=== PATIENT | male | born 1980 | race Caucasian/White ===

== ENCOUNTER 2016-09-13 15:05 | Outpatient (CLI) | payer BC | END 2016-09-13 15:06 | disposition home or self-care (01) | DX: G47.33 Obstructive sleep apnea (adult) (pediatric) (principal) ==

== ENCOUNTER 2017-09-26 08:03 | Outpatient (CLI) | payer BC | END 2017-09-26 08:04 | disposition EMS.NT | LOC: EMS 08:03 | PROVIDERS: ATTEND Surgery | DX: R07.9 Chest pain, unspecified (principal) ==

== ENCOUNTER 2019-06-02 20:19 | Outpatient (CLI) | payer BC | END 2019-06-02 20:20 | disposition EMS.NT | LOC: EMS 20:19 | PROVIDERS: ATTEND Surgery | DX: R07.9 Chest pain, unspecified (principal); R10.10 Upper abdominal pain, unspecified ==

== ENCOUNTER 2019-06-22 22:43 | Outpatient (CLI) | payer SELFPAY | END 2019-06-22 22:44 | disposition critical access hospital (66) | LOC: EMS 22:43 | PROVIDERS: ATTEND Surgery | DX: M54.5 Low back pain (principal); R26.2 Difficulty in walking, not elsewhere classified | CPT/HCPCS: A0425; A0429 ==

== ENCOUNTER 2019-06-23 | Emergency (ER) | payer SELFPAY ==
--- NOTE | 2019-06-22 23:51 | ED Physician Documentation ---
PD HPI BACK PAIN - Stated complaint Stated Complaint: BACK PAIN - History obtained from History obtained from: Patient - History of Present Illness Timing - onset: Enter time (10:00), Today Timing - duration: Hours Timing - details: Abrupt onset Pain level now: 8 Location: Lower, Right Quality: Pain, Spasm Associated symptoms: No: Fever, Weakness, Numbness, Incontinent of urine, Unable to urinate, Incontinent of stool Improves with: Rest Worsened by: Movement Recently seen: Not recently seen - Additional information Additional information: sudden onset lower right and midline back pain 10 AM this morning; he was bent forward over his sink spitting after brushing his teeth. Upon straightening back up, he had this sudden pain which has steadily worsened during the day and is now severe. distinctly worse with movement. does not radiate. he took vicodin and flexeril ('s prescription) without relief Review of Systems Constitutional: denies: Fever : denies: Dysuria, Frequency, Incontinent, Hematuria Musculoskeletal: reports: Back pain Neurologic: denies: Focal weakness, Numbness PD PAST MEDICAL HISTORY - Past Medical History Past Medical History: No - Past Surgical History Past Surgical History: No - Present Medications Home Medications: Ambulatory Orders Medication Instructions Recorded Confirmed Albuterol Sulfate [Albuterol 8.5 gm IH QID PRN 06/23/19 06/23/19 Sulfate Hfa] Fluticasone/Salmeterol [Advair 1 each IH BID 06/23/19 06/23/19 250-50 Diskus] Oxycodone HCl/Acetaminophen 1 - 2 each PO Q6H PRN #14 tablet 06/23/19 [Percocet 5-325 mg Tablet] diazePAM [Valium] 5 mg PO TID PRN #15 tablet 06/23/19 - Allergies Allergies/Adverse Reactions: Allergies Allergy/AdvReac Type Severity Reaction Status Date / Time No Known Drug Allergies Allergy Verified 06/23/19 00:04 PD ED PE NORMAL - Vitals Vital signs reviewed: Yes - General General: Alert and oriented X 3, Well developed/nourished, Other (appears to be uncomfortable due to pain which is worse with movement) - Cardiac Cardiac: RRR, No murmur - Respiratory Respiratory: No respiratory distress, Clear bilaterally - Back Back: No CVA TTP, No spinal TTP, Other (able to roll on to side but can't sit up due to exacerbation of pain when he tries to do so) - Derm Derm: Normal color, Warm and dry, No rash - Neuro Neuro: Alert and oriented X 3, 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 We discussed PO valium to be added if these medications were not effective, but he feels adequate relief and can sit up and move around without severe pain, is comfortable with d/c home. Departure - Departure Disposition: 01 Home, Self Care Clinical Impression: Back pain Condition: Good Instructions: NARCOTIC, Oral, ED Neck Back Pain General Follow-Up: Odalis Dasilva DO [Primary Care Provider] - (Call to arrange for next available appointment) Prescriptions: diazePAM [Valium] 5 mg PO TID PRN #15 tablet PRN Reason: Spasms Oxycodone HCl/Acetaminophen [Percocet 5-325 mg Tablet] 1 - 2 each PO Q6H PRN #14 tablet PRN Reason: pain Discharge Date/Time: 06/23/19 01:51
[2019-06-23] MEDS ORDERED: HYDROmorphone 1 MG/ML CARPUJECT IM STA (00:30)
[2019-06-23] MEDS ORDERED: KETOROLAC 60 MG/2 ML VIAL IM STA (00:30)
[2019-06-23] MEDS ORDERED: oxyCODONE/ACET 5/325 Prepack 4 PO STA (01:36)
[2019-06-23 01:44] VITALS: BP 117/55
== END 2019-06-23 01:51 | disposition home or self-care (01) ==
LOC: EDUNIT# → ED
DX: M54.5 Low back pain (principal)
CPT/HCPCS: 96372; 99283; 99284; J1170

== ENCOUNTER 2021-04-03 13:29 | Outpatient (CLI) | payer BC, OTHER | END 2021-04-03 23:59 | LOC: LAB.N 13:29 | PROVIDERS: ATTEND Family Medicine | DX: R07.0 Pain in throat (principal); Z20.822 Contact with and (suspected) exposure to COVID-19 | CPT/HCPCS: 87070 ==